=== PATIENT | male | born 1960 | race Caucasian/White ===

== ENCOUNTER → 2018-09-30 | Outpatient (CLI) | payer OTHER ==
[~2018-09-30] MED LIST: AMITIZA8 MCG PO; CIPRO500 MG PO; FLAGYL500 MG PO; MIRALAX17 GM PO; ONDANSETRON HCL4 M2 PO; PERCOCET 5-3251 EACH PO; PRINIVIL40 MG PO; TAMSULOSIN HCL0.4 MG PO; ZOFRAN ODT4 MG PO; [UNRECOGNIZED DRUG - OTHER]
--- NOTE | 2018-09-30 10:29 | NUR ---
PT IN FOR PEG TUBE EXCHANGE. TELEPHONE CONSENT OBTAINED FROM . PT ALERT BUT NON VERBAL. NO SIGNS AND SYMPTOMS OF PAIN. IV #22 L UPPER ARM FLUSHES WELL. VSS. PT TAKEN TO IR, PEG EXCHANGED WITHOUT DIFFICULTY. PT TO TX BACK TO [facility] VIA TRANSPORTER.
[2018-09-30 11:15] VITALS: BP 109/62
--- NOTE | 2018-09-30 11:26 | NUR ---
PT FOUND ON FLOOR AT FOOT OF BED, PT ALERT, NON VERBAL, NO OBVIOUS INJURIES, PT SHOOK HEAD NO WHEN ASKED IF HE WAS HURT. PT WAS EXAMINED BY DR. HAMMER AND DR ARITA. NO NEW ORDERS AT THIS TIME. PEG TUBE INTACT, PC TO [facility] REPORT GIVEN. FALL BRACELET PLACED, PT MOVED TO DESK, PT EDUCATED. VSS. DC BACK TO [facility] VIA [facility].
== END | disposition home or self-care (01) ==
LOC: SPEC 08:03
DX: K94.23 Gastrostomy malfunction (principal); I10 Essential (primary) hypertension; I25.2 Old myocardial infarction; Z98.890 Other specified postprocedural states; Z79.899 Other long term (current) drug therapy